=== PATIENT | female | born 1975 | race Caucasian/White ===

== ENCOUNTER 2017-09-23 14:32 | Emergency (ER) | payer OTHER, BC ==
[~2017-09-23] VITALS: Ht 162.6 cm; Wt 56.0 kg
[2017-09-23 14:40] VITALS: BP 121/81; PULSE 78; RESP 16; TEMP 98.7; O2SAT 99
[2017-09-23] MEDS ORDERED: ROBA750T PO (15:11)
[2017-09-23] MEDS ORDERED: MOBI15TA PO (15:11)
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
== END 2017-09-23 16:00 | disposition home or self-care (01) ==
LOC: PHEFT 14:32
DX: S16.1XXA Strain of muscle, fascia and tendon at neck level, initial encounter (principal); M54.6 Pain in thoracic spine; V49.49XA Driver injured in collision with other motor vehicles in traffic accident, initial encounter
CPT/HCPCS: 72040; 99284